=== PATIENT | female | born 1965 | race Caucasian/White ===

== ENCOUNTER 2023-12-12 11:12 | Outpatient (CLI) | payer OTHER | END 2023-12-12 20:13 | disposition home or self-care (01) | LOC: SCA 11:12 | PROVIDERS: ATTEND Internal Medicine | DX: I44.4 Left anterior fascicular block (principal); I51.7 Cardiomegaly; R94.31 Abnormal electrocardiogram [ECG] [EKG] | CPT/HCPCS: 93005; 93306 ==